=== PATIENT | male | born 1975 | race Caucasian/White ===

== ENCOUNTER 2020-05-22 19:57 | Emergency (ER) | payer OTHER ==
[~2020-05-22] VITALS: Ht 175.3 cm; Wt 90.9 kg
[2020-05-22] MEDS ORDERED: PERTUSS(ACELL),DIPH,TET VAC/PF 0.5 ML VIAL IM ONE (21:00)
[2020-05-22] MEDS ORDERED: HYDROCODONE/ACETAMINOPHEN 5-325 MG TABLET PO ONE (21:00)
[2020-05-22] MEDS ORDERED: LIDOCAINE 1% 10 ML VIAL INJ ONE (23:15)
[2020-05-22] MEDS ORDERED: BACITRACIN 0.9 GM PACKET OINTMENT TP ONE (23:15)
[2020-05-22 23:50] VITALS: BP 136/68
[2020-05-23] MEDS ORDERED: CEPHALEXIN MONOHYDRATE 500 MG CAPSULE PO ONE (00:30)
[2020-05-23] MEDS ORDERED: IBUPROFEN 600 MG TABLET PO ONE (00:30)
[2020-05-23] MEDS ORDERED: ACETAMINOPHEN 500 MG TABLET PO ONE (00:30)
== END 2020-05-23 00:38 | disposition home or self-care (01) ==
LOC: EMS 19:58
DX: S01.312A Laceration without foreign body of left ear, initial encounter (principal); X99.8XXA Assault by other sharp object, initial encounter; Y93.89 Activity, other specified; Y92.89 Other specified places as the place of occurrence of the external cause; Y99.8 Other external cause status
CPT/HCPCS: 12052; 70450; 90471; 90715; 99284; J3490

== ENCOUNTER 2021-09-11 21:02 | Inpatient (IN) | payer OTHER ==
[~2021-09-11] VITALS: Ht 170.2 cm; Wt 90.9 kg
[2021-09-11] MEDS ORDERED: CloNIDine HCL 0.1 MG TABLET PO ONE (22:45)
[2021-09-11] MEDS ORDERED: LORazepam 2 MG/ML VIAL IVP ONE (22:45)
[2021-09-11] MEDS ORDERED: LORazepam 2 MG TABLET PO ONE (22:45)
[2021-09-11] MEDS ORDERED: ONDANSETRON HCL 4 MG/2 ML VIAL IVP ONE ×2 (22:45)
[2021-09-11] MEDS ORDERED: ONDANSETRON HCL 4 MG/2 ML VIAL IVP PRN (23:15)
[2021-09-11] MEDS ORDERED: 0.9% SODIUM CHLORIDE 10 ML SYRINGE IVP PRN (23:15)
[2021-09-11] MEDS ORDERED: ACETAMINOPHEN 325 MG TABLET PO PRN (23:15)
[2021-09-11] MEDS ORDERED: KETOROLAC TROMETHAMINE 30 MG/ML VIAL IVP ONE (23:30)
[2021-09-12] MEDS ORDERED: ONDANSETRON HCL 4 MG/2 ML VIAL IVP PRN (00:30)
[2021-09-12] MEDS ORDERED: LORazepam 0.5 MG TABLET PO PRN (00:30)
[2021-09-12] MEDS ORDERED: KETOROLAC TROMETHAMINE 15 MG/ML VIAL IVP PRN (00:30)
[2021-09-12 00:52] LABS: BASOPHILS % (AUTO) 0.3 % (0.0-2.0); EOSINOPHILS % (AUTO) 0.7 % (1.0-6.0); HEMATOCRIT 37.9 % (41-53); HEMOGLOBIN 12.4 g/dL (13.5-17.5); LYMPHOCYTES % (AUTO) 25.1 % (22.0-44.0); MEAN CORPUSCULAR HEMOGLOBIN 30.4 pg (26.0-34.0); MEAN CORPUSCULAR HGB CONC 32.6 G/dL (31.0-37.0); MEAN CORPUSCULAR VOLUME 93 fL (80-100); MONOCYTES # (AUTO) 0.6 K/uL (0.1-1.0); MONOCYTES % (AUTO) 7.2 % (2.0-9.0); NEUTROPHILS # (AUTO) 5.4 K/uL (1.8-7.7); NEUTROPHILS % (AUTO) 66.7 % (40.0-70.0); PLATELET COUNT (AUTO) 209 K/uL (150-450); RED BLOOD CELL COUNT(AUTO) 4.07 MIL/uL (4.50-5.90)
[2021-09-12 00:57] LABS: ANION GAP 10 mmol/L (8-16); CALCIUM, TOTAL 8.5 mg/dL (8.8-10.5); CARBON DIOXIDE 25 mmol/L (22-29); CHLORIDE 106 mmol/L (98-107); CREATININE 0.76 mg/dL (0.60-1.30); GLOMERULAR FILTR. RATE CALC > 60 mL/min (>60); GLUCOSE,RANDOM 104 mg/dL (70-110); POTASSIUM 3.8 mmol/L (3.5-5.1); SODIUM SERUM 141 mmol/L (136-145); UREA NITROGEN, BLOOD 17 mg/dL (7-18)
[2021-09-12 01:02] LABS: ALANINE AMINOTRANSFERASE 109 U/L (12-78); ALBUMIN 3.2 g/dL (3.4-5.0); ALKALINE PHOSPHATASE 69 U/L (46-116); ASPARTATE AMINOTRANSFERASE 45 U/L (15-37); BILIRUBIN,TOTAL 0.7 mg/dL (0.1-1.0); LIPASE 54 U/L (73-393); TOTAL PROTEIN, SERUM 6.6 g/dL (6.4-8.2)
[2021-09-12] MEDS ORDERED: HEPARIN SODIUM,PORCINE 5,000 UNITS/ML VIAL SQ SCH (08:00)
[2021-09-12 09:25] LABS: COVID AG,FIA SOURCE NASOPHARYNGEAL
[2021-09-12 11:00] VITALS: BP 118/85
[2021-09-12] MEDS: ACETAMINOPHEN 325 MG TABLET PO PRN (13:49)
[2021-09-12] MEDS ORDERED: DEXTROSE 50%-WATER 25 GM/50 ML SYRINGE IVP PRN (14:30)
[2021-09-12] MEDS ORDERED: INSULIN LISPRO 100 UNITS/ML SQ PRN (14:30)
[2021-09-12 16:03] VITALS: BP 123/70
[2021-09-12] MEDS ORDERED: INFLUENZA VIRUS VACCINE QVS 2021-22 (6MO+)/PF 60 MCG/0.5 ML SYRINGE IM. ONE (16:30)
[2021-09-12 17:22] LABS: AMPHET/METH SCREEN,URINE POSITIVE (NEGATIVE); BARBITURATE SCREEN, URINE NEGATIVE (NEGATIVE); BENZODIAZEPINES SCREEN,URINE NEGATIVE (NEGATIVE); CANNABINOID SCREEN,URINE NEGATIVE (NEGATIVE); COCAINE SCREEN,URINE NEGATIVE (NEGATIVE); METHADONE SCREEN, URINE NEGATIVE (NEGATIVE); OPIATE SCREEN,URINE NEGATIVE (NEGATIVE); PHENCYCLIDINE SCREEN,URINE NEGATIVE (NEGATIVE)
[2021-09-12] MEDS: LORazepam 2 MG/ML VIAL IM PRN (19:17)
[2021-09-12 19:55] VITALS: BP 140/81
[2021-09-12] MEDS: MELATONIN 3 MG TABLET PO PRN (20:20)
[2021-09-12] MEDS: KETOROLAC TROMETHAMINE 30 MG/ML VIAL IVP PRN (20:20)
[2021-09-13 00:51] LABS: GLUCOMETER DEV NAME(LOC) 6N.1; GLUCOSE,POINT OF CARE 111 MG/DL (70-110)
[2021-09-13] MEDS: LORazepam 2 MG/ML VIAL IM PRN (03:05)
[2021-09-13] MEDS: KETOROLAC TROMETHAMINE 30 MG/ML VIAL IVP PRN ×4 (03:06→22:52)
[2021-09-13 04:25] VITALS: BP 131/78
[2021-09-13 06:32] LABS: GLUCOMETER DEV NAME(LOC) 6N.1; GLUCOSE,POINT OF CARE 97 MG/DL (70-110)
[2021-09-13 08:30] VITALS: BP 134/93
[2021-09-13] MEDS ORDERED: LORazepam 2 MG/ML VIAL IVP PRN (10:00)
[2021-09-13] MEDS: FLUoxetine HCL 10 MG CAPSULE PO SCH (13:29)
[2021-09-13 13:37] LABS: GLUCOMETER DEV NAME(LOC) 6N.1; GLUCOSE,POINT OF CARE 96 MG/DL (70-110)
[2021-09-13] MEDS: ACETAMINOPHEN 325 MG TABLET PO PRN (15:03)
[2021-09-13 15:45] VITALS: BP 126/84
[2021-09-13 19:06] LABS: GLUCOMETER DEV NAME(LOC) 6S.1; GLUCOSE,POINT OF CARE 103 MG/DL (70-110)
[2021-09-13] MEDS: MELATONIN 3 MG TABLET PO PRN (19:42)
[2021-09-13 20:10] VITALS: BP 108/64
[2021-09-14] MEDS ORDERED: LORazepam 0.5 MG TABLET PO PRN ×2 (04:00→10:30)
[2021-09-14] MEDS ORDERED: KETOROLAC TROMETHAMINE 10 MG TABLET PO PRN (04:00)
[2021-09-14 04:10] VITALS: BP 110/71
[2021-09-14] MEDS ORDERED: ONDANSETRON HCL 4 MG TABLET PO PRN (04:30)
[2021-09-14 05:59] LABS: GLUCOMETER DEV NAME(LOC) 6N.1; GLUCOSE,POINT OF CARE 116 MG/DL (70-110)
[2021-09-14 07:31] VITALS: BP 116/79
[2021-09-14] MEDS: FLUoxetine HCL 10 MG CAPSULE PO SCH (08:16)
[2021-09-14] MEDS: ACETAMINOPHEN 325 MG TABLET PO PRN ×2 (10:41→18:24)
[2021-09-14] MEDS: KETOROLAC TROMETHAMINE 10 MG TABLET PO PRN ×2 (12:32→21:20)
[2021-09-14 15:16] LABS: GLUCOMETER DEV NAME(LOC) 6S.1; GLUCOSE,POINT OF CARE 117 MG/DL (70-110)
[2021-09-14 15:54] VITALS: BP 132/74
[2021-09-14 20:35] VITALS: BP 129/85
[2021-09-14 23:03] LABS: GLUCOMETER DEV NAME(LOC) 6S.1; GLUCOSE,POINT OF CARE 112 MG/DL (70-110)
[2021-09-14] MEDS: MELATONIN 3 MG TABLET PO PRN (23:24)
[2021-09-15] MEDS: ACETAMINOPHEN 325 MG TABLET PO PRN ×2 (00:36→11:01)
[2021-09-15 07:50] VITALS: BP 126/78
[2021-09-15] MEDS: FLUoxetine HCL 10 MG CAPSULE PO SCH (08:14)
[2021-09-15] MEDS: KETOROLAC TROMETHAMINE 10 MG TABLET PO PRN ×2 (08:15→16:12)
[2021-09-15] MEDS: FAMOTIDINE 20 MG TABLET PO SCH ×2 (08:56→19:40)
[2021-09-15] MEDS ORDERED: LOPERAMIDE HCL 2 MG CAPSULE PO PRN (09:00)
[2021-09-15 16:09] VITALS: BP 121/75
[2021-09-15 18:24] LABS: GLUCOMETER DEV NAME(LOC) 6S.1; GLUCOSE,POINT OF CARE 100 MG/DL (70-110)
[2021-09-15 18:24] LABS: GLUCOMETER DEV NAME(LOC) 6N.1; GLUCOSE,POINT OF CARE 104 MG/DL (70-110)
[2021-09-15 19:40] VITALS: BP 129/74
[2021-09-15] MEDS: MELATONIN 3 MG TABLET PO PRN (19:40)
[2021-09-16] MEDS: KETOROLAC TROMETHAMINE 10 MG TABLET PO PRN (02:38)
[2021-09-16 05:34] VITALS: BP 100/58
[2021-09-16] MEDS: FLUoxetine HCL 10 MG CAPSULE PO SCH (08:18)
[2021-09-16] MEDS: FAMOTIDINE 20 MG TABLET PO SCH (08:18)
[2021-09-16] MEDS: ACETAMINOPHEN 325 MG TABLET PO PRN (08:19)
[2021-09-16] MEDS ORDERED: FAMO20 PO (11:20)
[2021-09-16] MEDS ORDERED: FLUO10CA24 PO (11:21)
[2021-09-16] MEDS ORDERED: ACET-3207 PO (11:22)
[2021-09-16] MEDS ORDERED: INSU100C14 SQ (11:24)
[2021-09-16] MEDS ORDERED: LOPE2TAB26 PO (11:26)
== END 2021-09-16 13:18 | DRG 897 ==
LOC: EMS 21:04 → 6S 09-12 02:55
PROVIDERS: ADMIT Internal Medicine; ATTEND Internal Medicine
DX: F11.23 Opioid dependence with withdrawal (principal); G40.909 Epilepsy, unspecified, not intractable, without status epilepticus; E11.9 Type 2 diabetes mellitus without complications; F43.10 Post-traumatic stress disorder, unspecified; Z20.822 Contact with and (suspected) exposure to COVID-19; G89.29 Other chronic pain; M25.571 Pain in right ankle and joints of right foot; Z76.5 Malingerer [conscious simulation]
CPT/HCPCS: 80053; 82962; 83690; 85025; 99285; G0480; J1644; J1885; J2060; J2405; Q0162